=== PATIENT | female | born 1995 | race African-American/Black ===

== ENCOUNTER 2020-03-19 20:33 | Emergency (ER) | payer MEDICAID ==
[~2020-03-19] VITALS: Ht 167.6 cm; Wt 60.0 kg
[2020-03-19 20:51] VITALS: BP 125/76
== END 2020-03-20 | disposition left against medical advice (07) ==
LOC: ER 20:33
DX: R10.9 Unspecified abdominal pain (principal); Z53.21 Procedure and treatment not carried out due to patient leaving prior to being seen by health care provider